=== PATIENT | female | born 1935 | race Caucasian/White ===

== ENCOUNTER 2019-10-19 21:21 | Inpatient (IN) ==
--- OUTSIDE RECORDS SUMMARY | 2019-10-19 21:24 | External Medical Summary | Continuity of Care Document ---
:1935 Author Name Susu Knight Address Unavailable Unavailable , Care Team Providers Name Role Phone Susu Knight Unavailable [email or web address] Unavailable Problems Active medical history not documented Allergies and Adverse Reactions Allergy history not documented Medications Medications not documented Procedures Procedures not documented Immunizations Immunizations not documented Plan of Treatment Planned Observations Planned Goals not documented Results No Known Results Results not documented
[2019-10-19] MEDS ORDERED: ONDANSETRON INJ 2 MG/ML 2 ML VIAL IV STA (21:33)
[2019-10-19] MEDS ORDERED: HYDROmorphone INJ 1 MG/ML SYRINGE IV STA (21:33)
--- NOTE | 2019-10-19 21:38 | Emergency Department Note ---
History of Present Illness General Chief complaint: Abdominal Pain Stated complaint: AB PAIN Time Seen by Provider: 10/19/19 21:27 History of Present Illness Provider complaint: Abdominal pain Current Pain Intensity: 10 Quality: + stabbing and + sharp Associated symptoms: + nausea/vomiting 84-year-old female with history of pancreatic, adrenal, and liver cancer presents emergency department with abdominal pain. She states her abdominal pain is diffuse. She states she thinks it is her cancer pain. No fevers. No dysuria. Patient also reports nausea. No vomiting. Patient is a patient of Dr. Sanchez oncology. Home Medications Home Medications Medication Instructions Recorded Confirmed Type Ocuvite Preservision 1 tab PO QPM #0 tab 09/26/14 10/19/19 History docusate sodium [Stool Softener] 100 mg PO QAM 10/19/19 10/19/19 History fentanyl 25 mcg TOPICAL [id number] 10/19/19 10/19/19 History nitrofurantoin macrocrystal 100 mg PO QPM 10/19/19 10/19/19 History oxycodone 5 - 10 mg PO Q4H PRN 10/19/19 10/19/19 History polyethylene glycol 3350 [Miralax] 17 g PO DAILY PRN 10/19/19 10/19/19 History simvastatin 20 mg PO QPM 10/19/19 10/19/19 History warfarin 5 mg PO 6XWK 10/19/19 10/19/19 History warfarin 7.5 mg PO WK 10/19/19 10/19/19 History Allergies Allergy/AdvReac Type Severity Reaction Status Date / Time Sulfa (Sulfonamide Allergy Unknown hands swell Verified 10/19/19 22:14 Antibiotics) meperidine AdvReac Severe blood Verified 10/19/19 22:14 pressure drops significantly Past Med/Surg History Medical History (Updated 10/19/19 @ 23:51 by Jude Caballero) A-fib Family history of ovarian cancer GERD (gastroesophageal reflux disease) HLD (hyperlipidemia) Pancreatic cancer Pancreatic cancer metastasized to liver Surgical History (Updated 10/19/19 @ 22:04 by Jude Caballero) H/O resection of pancreas Family History (Updated 10/19/19 @ 22:05 by Jude Caballero) Other Cancer Social History Preferred Language: French Feels Safe at Home: Yes Smoking Status: Former smoker Review of Systems A total of 10 systems reviewed and were otherwise negative Physical Exam Vital Signs Vital Signs - 24 hr 10/19/19 21:30 10/19/19 21:32 10/19/19 21:38 Temperature 37.1 C Temperature Source Oral Pulse Rate 97 H 98 H 94 H Pulse Rate from SpO2 Sensor 96 H 99 H Respiratory Rate 22 22 20 Respiratory Effort / Characteristics Non-Labored Spontaneous Respiratory Depth Normal Respiratory Pattern Regular Blood Pressure 206/117 H 206/117 H Blood Pressure Mean 130 146 Pulse Oximetry 96 97 95 Oxygen Delivery Method Room Air Sepsis Recent Fever Within 48 Hours No Sepsis New/Unexplained Change in Mental Status No Sepsis Action Taken by Nursing No Action Required 10/19/19 22:00 10/19/19 22:38 10/19/19 23:00 Temperature Temperature Source Pulse Rate 100 H 104 H 83 Pulse Rate from SpO2 Sensor 100 H 82 Respiratory Rate 25 H 15 Respiratory Effort / Characteristics Respiratory Depth Respiratory Pattern Blood Pressure 182/91 H Blood Pressure Mean 124 Pulse Oximetry 90 Oxygen Delivery Method Sepsis Recent Fever Within 48 Hours Sepsis New/Unexplained Change in Mental Status Sepsis Action Taken by Nursing 10/19/19 23:01 Temperature Temperature Source Pulse Rate 82 Pulse Rate from SpO2 Sensor 82 Respiratory Rate 16 Respiratory Effort / Characteristics Respiratory Depth Respiratory Pattern Blood Pressure Blood Pressure Mean Pulse Oximetry Oxygen Delivery Method Sepsis Recent Fever Within 48 Hours Sepsis New/Unexplained Change in Mental Status Sepsis Action Taken by Nursing Physical Exam GENERAL: She is oriented to person, place, and time. She appears well-developed and well-nourished. She does not appear distressed. HENT: Exam performed. -Head: Normocephalic and atraumatic. -Right Ear: External ear normal. No mastoid tenderness. -Left Ear: External ear normal. No mastoid tenderness. -Mouth/Throat: The oropharynx is clear and moist. No trismus in the jaw. No dental abscesses or uvula swelling. No oropharyngeal exudate or tonsillar abscesses. EYES: Conjunctivae and EOM are normal. Pupils are equal, round, and reactive to light. Right eye exhibits no discharge. Left eye exhibits no discharge. No scleral icterus. NECK: Normal range of motion. Neck supple. No JVD present. No spinous process tenderness present. No carotid bruit present. No rigidity. No tracheal deviation and normal range of motion present. No Brudzinski's sign and no Kernig's sign noted. CV: Normal rate, regular rhythm, normal heart sounds and intact distal pulses. There is no peripheral edema. Palpable radial pulses bue. PULM/CHEST: Effort normal and breath sounds normal. No respiratory distress. No stridor. She has no wheezes. She has no rales. -Chest Wall: She exhibits no tenderness. ABD: Diffuse pain on palpation of the abdomen. MUSC/SKEL: Normal range of motion. There is no peripheral edema, tenderness or deformity. LYMPH: No cervical adenopathy. NEURO: She is alert and oriented to person, place, and time. She has normal strength. No cranial nerve deficit or sensory deficit. Coordination and gait normal. GCS eye subscore is 4. GCS verbal subscore is 5. GCS motor subscore is 6. Cerebellar tests wnl. SKIN: Skin is warm and dry. She is not diaphoretic. PSYCH: She has a normal mood and affect. Behavior is normal. Judgment and thought content normal. Course Course 2137: The patient was evaluated in room B7. A complete history and physical exam was performed. 2201: Salma cask maker was able to access the [employer] EMR system. Patient is a DNR/DNI advanced directive. Per Dr. Sanchez oncology's last note patient is on sandostatin. She has history of A. fib, GERD, fibromyalgia, hyperlipidemia. 2314: Vital signs stable. CT does show large necrotic mass with plethora of metastatic disease. This is known to the patient. Again she is a DNR/DNI. Vincent sharma on reassessment is still having significant pain. Patient will be admitted for pain control. Dr. Anthony Tabares hospitalist notified and agreed to the admission. Administered Medications Sodium Chloride (Nss) 500 mls @ 125 mls/hr IV .Q4H KAZ Stop: 11/18/19 21:44 Last Admin: 10/19/19 21:55 Dose: 125 mls/hr Documented by: [id number] Ioversol (Optiray 320 100ml) 94 ml IV ONCE PRN PRN Reason: Interaction Checking Stop: 10/23/19 22:18 Last Admin: 10/19/19 22:19 Dose: 94 ml Documented by: [id number] Discontinued Medications Hydromorphone HCl (Dilaudid) 0.5 mg IV NOW STA Stop: 10/19/19 21:34 Last Admin: 10/19/19 21:54 Dose: 0.5 mg Documented by: [id number] Hydromorphone HCl (Dilaudid) 0.5 mg IV NOW STA Stop: 10/19/19 22:41 Last Admin: 10/19/19 22:52 Dose: 0.5 mg Documented by: [id number] Hydromorphone HCl (Dilaudid) 0.5 mg IV NOW STA Stop: 10/19/19 23:13 Last Admin: 10/19/19 23:29 Dose: 0.5 mg Documented by: [id number] Ondansetron HCl (Zofran) 4 mg IV NOW STA Stop: 10/19/19 21:34 Last Admin: 10/19/19 21:53 Dose: 4 mg Documented by: [id number] Medical Decision Making Laboratory Data Result diagrams: 10/19/19 21:45 10/19/19 21:45 Lab Results 10/19/19 10/19/19 10/19/19 Range/Units 21:45 21:45 21:45 WBC 13.07 H (4.8-10.8) K/uL RBC 4.59 (4.2-5.4) M/uL Hgb 12.4 (12.0-16.0) g/dL POC Hgb (12.0-16.0) g/dl Hct 39.1 (37-47) % POC Hct (37-47) % MCV 85.2 (80-100) fL MCH 27.0 (25-34) pg MCHC 31.7 L (32-36) g/dL RDW Std Deviation 51.0 H (36.4-46.3) fL RDW Coeff of Lottie 16.2 H (11.5-14.5) % Plt Count 380 (130-400) K/uL MPV 12.0 H (7.4-10.4) fL Immature Gran % (Auto) 0.3 % Neut % (Auto) 78.6 % Lymph % (Auto) 13.5 % Ashley % (Auto) 7.3 % Eos % (Auto) 0.0 % Baso % (Auto) 0.3 % Immature Gran # (Auto) 0.04 H (0.00-0.02) K/uL Neut # (Auto) 10.28 H (1.4-6.5) K/uL Lymph # (Auto) 1.76 (1.2-3.4) K/uL Ashley # (Auto) 0.95 H (0.11-0.59) K/uL Eos # (Auto) 0.00 (0-0.5) K/uL Baso # (Auto) 0.04 (0-0.2) K/uL PT (9.0-12.0) Seconds INR (0.9-1.1) APTT (21.0-31.0) Seconds PTT Ratio POC Sodium (135-144) mmol/L Sodium 132 L (136-145) mmol/L POC Potassium (3.3-5.0) mmol/L Potassium (3.5-5.1) mmol/L POC Chloride (101-112) mmol/L Chloride 97 L (98-107) mmol/L Carbon Dioxide 26 (21-32) mmol/L POC Total CO2 (24-31) mEq/l Anion Gap 9.0 (3-11) POC Anion Gap (16-25) mmol/L POC BUN (7-18) mg/dl BUN 12 (7-18) mg/dl Creatinine 0.74 (0.6-1.2) mg/dl POC Creatinine (0.6-1.3) mg/dl Est Cr Clr Drug Dosing 43.9 ml/min Est GFR ( Amer) 85.6 Est GFR (Non-Af Amer) 73.9 BUN/Creatinine Ratio 16.0 (10-20) Glucose 162 H (70-99) mg/dl POC Glucose (other) (70-99) mg/dl Calcium 9.5 (8.5-10.1) mg/dl POC Ioniz Calcium Juliet (1.12-1.32) mmol/l Magnesium (1.8-2.4) mg/dl Total Bilirubin 0.3 (0.2-1) mg/dl Direct Bilirubin (0-0.2) mg/dl AST (15-37) U/L ALT 13 (12-78) U/L Alkaline Phosphatase 97 (45-117) U/L Ammonia < 10.0 L (11-32) umol/L Troponin I < 0.015 (0-0.045) ng/ml Total Protein 8.0 (6.4-8.2) gm/dl Albumin 3.4 (3.4-5.0) gm/dl Lipase 57 L (73-393) U/L Urine Color Urine Appearance (Clear) Urine pH (4.5-7.5) Ur Specific [place] (1.000-1.030) Urine Protein (Negative) Urine Glucose (UA) (Negative) Urine Ketones (Negative) Urine Blood (Negative) Urine Nitrite (Negative) Urine Bilirubin (Negative) Urine Urobilinogen (Negative) Ur Leukocyte Esterase (Negative) Urine WBC (Auto) (0-5) /hpf Urine RBC (Auto) (0-4) /hpf U Hyaline Cast (Auto) (0-5) /lpf U Epithel Cells (Auto) (0-5) /lpf Urine Bacteria (Auto) (Negative) 10/19/19 10/19/19 10/19/19 Range/Units 21:45 21:51 22:36 WBC (4.8-10.8) K/uL RBC (4.2-5.4) M/uL Hgb (12.0-16.0) g/dL POC Hgb 13.9 (12.0-16.0) g/dl Hct (37-47) % POC Hct 41 (37-47) % MCV (80-100) fL MCH (25-34) pg MCHC (32-36) g/dL RDW Std Deviation (36.4-46.3) fL RDW Coeff of Lottie (11.5-14.5) % Plt Count (130-400) K/uL MPV (7.4-10.4) fL Immature Gran % (Auto) % Neut % (Auto) % Lymph % (Auto) % Ashley % (Auto) % Eos % (Auto) % Baso % (Auto) % Immature Gran # (Auto) (0.00-0.02) K/uL Neut # (Auto) (1.4-6.5) K/uL Lymph # (Auto) (1.2-3.4) K/uL Ashley # (Auto) (0.11-0.59) K/uL Eos # (Auto) (0-0.5) K/uL Baso # (Auto) (0-0.2) K/uL PT 39.1 H (9.0-12.0) Seconds INR 4.0 H (0.9-1.1) APTT 37.3 H (21.0-31.0) Seconds PTT Ratio 1.3 POC Sodium 131 L (135-144) mmol/L Sodium (136-145) mmol/L POC Potassium 4.5 (3.3-5.0) mmol/L Potassium (3.5-5.1) mmol/L POC Chloride 95 L (101-112) mmol/L Chloride (98-107) mmol/L Carbon Dioxide (21-32) mmol/L POC Total CO2 29 (24-31) mEq/l Anion Gap (3-11) POC Anion Gap 13.0 L (16-25) mmol/L POC BUN 13 (7-18) mg/dl BUN (7-18) mg/dl Creatinine (0.6-1.2) mg/dl POC Creatinine 0.7 (0.6-1.3) mg/dl Est Cr Clr Drug Dosing ml/min Est GFR ( Amer) Est GFR (Non-Af Amer) BUN/Creatinine Ratio (10-20) Glucose (70-99) mg/dl POC Glucose (other) 167 H (70-99) mg/dl Calcium (8.5-10.1) mg/dl POC Ioniz Calcium Juliet 1.14 (1.12-1.32) mmol/l Magnesium (1.8-2.4) mg/dl Total Bilirubin (0.2-1) mg/dl Direct Bilirubin (0-0.2) mg/dl AST (15-37) U/L ALT (12-78) U/L Alkaline Phosphatase (45-117) U/L Ammonia (11-32) umol/L Troponin I (0-0.045) ng/ml Total Protein (6.4-8.2) gm/dl Albumin (3.4-5.0) gm/dl Lipase (73-393) U/L Urine Color Yellow Urine Appearance Turbid A (Clear) Urine pH 8.0 H (4.5-7.5) Ur Specific [place] 1.027 (1.000-1.030) Urine Protein 1+ H (Negative) Urine Glucose (UA) Negative (Negative) Urine Ketones 1+ H (Negative) Urine Blood Trace H (Negative) Urine Nitrite Negative (Negative) Urine Bilirubin Negative (Negative) Urine Urobilinogen Negative (Negative) Ur Leukocyte Esterase Negative (Negative) Urine WBC (Auto) 5-10 H (0-5) /hpf Urine RBC (Auto) 5-10 H (0-4) /hpf U Hyaline Cast (Auto) 1-5 (0-5) /lpf U Epithel Cells (Auto) 20-30 H (0-5) /lpf Urine Bacteria (Auto) Negative (Negative) Imaging Data Radiologist's Impression: ABDOMEN AND PELVIS CT WITH IV CONTRAST CT DOSE: 261.25 mGy.cm HISTORY: Generalized abdominal pain. Pancreatic cancer. TECHNIQUE: Multiaxial CT images of the abdomen and pelvis were performed following the use of intravenous contrast. A dose lowering technique was utilized adhering to the principles of ALARA. COMPARISON STUDY: None. FINDINGS: Left basilar linear densities consistent with subsegmental atelectasis or scarring. No pneumoperitoneum. No pneumatosis. No suspicious lytic or blastic osseous lesions. The gallbladder, right adrenal gland, and right kidney are unremarkable. The spleen is not identified and likely surgically absent. There are few irregular hypodense lesions within the liver with the 3 largest measuring 3.4 cm within the right hepatic lobe, 2.4 cm within the left hepatic lobe, and also 2.2 cm within the left hepatic lobe. These are suspicious for metastatic disease. Additional subcentimeter hypodense lesions within the liver are too small to characterize. Partially necrotic large left upper quadrant mass with a few adjacent satellite nodules. This measures approximately 10 x 6 cm. This abuts and likely invades along the undersurface of the proximal stomach. This appears to invade into the left adrenal gland and partially encases the celiac artery. There is a patent stent within the celiac artery. This mass also results in mild mass effect along the left kidney. No hydronephrosis. Multiple partially necrotic nodules seen within the left upper quadrant laterally at the splenic resection site and along the left paracolic gutter abutting the a scending colon. Some of these could represent areas of splenosis. However, the necrotic nodules remain suspicious for metastatic disease. The uterus is surgically absent. No bladder wall thickening. Small midline ventral hernia within the lower pelvis which contains a small segment of the anterior bladder. Multiple small soft tissue nodules along the right perirectal location with the largest measuring 1 cm. No evidence for bowel obstruction. Colonic diverticulosis. No evidence for diverticulitis. Moderate to large amount of stool within the proximal colon. Soft tissue densities within the subcutaneous fat of the left gluteal region are nonspecific but may represent sites of prior medication injection. Multiple small fat-containing midline ventral hernias. There is also a moderate size umbilical hernia containing a short segment of small bowel. IMPRESSION: 1. Large necrotic mass within the left upper quadrant has described above. 2. Multiple soft tissue nodules in the left side of the abdomen and right perirectal location. This may represent a combination of splenosis and metastati c disease. 3. No bowel wall thickening or obstruction. 4. Hypodense lesions within the liver concerning for metastatic disease. 5. Multiple ventral hernias some of which contain small bowel and a short segment of the anterior bladder. 6. Additional findings as described above. ACT 112: Negative or not required by law. Electronically signed by: Zafar Campbell M.D. 10/19/2019 11:09 PM Dictated: 10/19/192248 Transcribed: 10/19/192248 ECG Data Rate (beats per minute): 97 Rhythm: + normal sinus ECG Intervals/blocks: + Normal QRS, + Normal ND and + Normal QT-c ECG ST segments: + Normal ST segments MDM Narrative 2138: The patient was evaluated in room B7. A complete history and physical exam was performed. 2201: Salma clayworker was able to access the [employer] EMR system. Patient is a DNR/DNI advanced directive. Per Dr. Sanchez oncology's last note patient is on sandostatin. She has history of A. fib, GERD, fibromyalgia, hyperlipidemia. 2315: Vital signs stable. CT does show large necrotic mass with plethora of metastatic disease. This is known to the patient. Again she is a DNR/DNI. Patient on reassessment is still having significant pain. Patient will be admitted for pain control. Dr. Anthony Tabares hospitalist notified and agreed to the admission. Impression & Plan Intractable abdominal pain Discharge Plan Visit Data Chief Complaint: Abdominal Pain Stated Complaint: AB PAIN ED Provider: Jude Caballero Discharge Problem: Intractable abdominal pain Patient Disposition: Admitted As Inpatient Forms Stand Alone Forms: [facility] Hammer and Grind Prescriptions Prescriptions: No Action Ocuvite Preservision 1 TAB tablet 1 tab PO QPM Qty: 0 RF: 0 nitrofurantoin macrocrystal 50 mg capsule 100 mg PO QPM RF: 0 simvastatin 20 mg tablet 20 mg PO QPM RF: 0 warfarin 5 mg tablet 5 mg PO [id number] RF: 0 warfarin 5 mg tablet 7.5 mg PO WK RF: 0 docusate sodium [Stool Softener] 100 mg Capsule 100 mg PO QAM RF: 0 fentanyl 25 mcg/hr patch 72 hour 25 mcg topical [id number] RF: 0 polyethylene glycol 3350 [Miralax] 17 gram/dose Powder 17 g PO DAILY PRN (Reason: Constipation) RF: 0 oxycodone 5 mg tablet 5 - 10 mg PO Q4H PRN (Reason: Pain) RF: 0 Referrals Referrals: Raleigh Pérez DO [Primary Care Provider] -
[2019-10-19] MEDS ORDERED: SODIUM CHLORIDE 0.9% 500 ML IV SCH (21:45)
[2019-10-19 21:56] LABS: Basophils # (auto) 0.04 K/uL (0-0.2); Basophils % (auto) 0.3 %; Hematocrit (blood only) 39.1 % (37-47); Hemoglobin 12.4 g/dL (12.0-16.0); Immature Granulocytes # (auto) 0.04 K/uL (0.00-0.02); Immature Granulocytes % (auto) 0.3 %; Lymphocytes # (auto) 1.76 K/uL (1.2-3.4); Lymphocytes % (auto) 13.5 %; Mean Corpuscular Hgb Conc 31.7 g/dL (32-36); Mean Corpuscular Volume 85.2 fL (80-100); Monocytes # (auto) 0.95 K/uL (0.11-0.59); Monocytes % (auto) 7.3 %; Neutrophils # (auto) 10.28 K/uL (1.4-6.5); Neutrophils % (auto) 78.6 %; Platelet Count 380 K/uL (130-400); RDW Coefficient of Variation 16.2 % (11.5-14.5); Red Blood Count 4.59 M/uL (4.2-5.4); White Blood Count 13.07 K/uL (4.8-10.8)
[2019-10-19 22:04] LABS: iSTAT Creatinine 0.7 mg/dl (0.6-1.3); iSTAT Hemoglobin 13.9 g/dl (12.0-16.0); iSTAT Ionized Calcium 1.14 mmol/l (1.12-1.32); iSTAT Potassium 4.5 mmol/L (3.3-5.0)
[2019-10-19 22:15] LABS: Partial Thromboplastin Ratio 1.3; Partial Thromboplastin Time 37.3 Seconds (21.0-31.0); Prothrombin Time 39.1 Seconds (9.0-12.0)
[2019-10-19] MEDS ORDERED: IOVERSOL 100ml IV PRN (22:19)
[2019-10-19 22:26] LABS: Alanine Aminotransferase 13 U/L (12-78); Albumin Level 3.4 gm/dl (3.4-5.0); Alkaline Phosphatase 97 U/L (45-117); Blood Urea Nitrogen 12 mg/dl (7-18); Calcium 9.5 mg/dl (8.5-10.1); Carbon Dioxide 26 mmol/L (21-32); Chloride 97 mmol/L (98-107); Creatinine Clr Calc Pharmacy 43.9 ml/min; Est GFR (African American) 85.6; Est GFR (Non-African American) 73.9; Glucose 162 mg/dl (70-99); Lipase 57 U/L (73-393); Sodium 132 mmol/L (136-145)
[2019-10-19 22:32] LABS: Bilirubin,Total 0.3 mg/dl (0.2-1); Troponin I < 0.015 ng/ml (0-0.045)
[2019-10-19] MEDS ORDERED: HYDROmorphone INJ 0.5 MG/0.5 ML SYR IV STA ×2 (22:40→23:12)
[2019-10-19 22:50] LABS: Appearance Urine Turbid (Clear); Bacteria Urine Automated Negative (Negative); Bilirubin Urine Negative (Negative); Blood Urine Trace (Negative); Color Urine Yellow; Epithelial Cell Urine Auto 20-30 /lpf (0-5); Glucose Urine UA Negative (Negative); Ketones Urine 1+ (Negative); Leukocyte Esterase Urine Negative (Negative); Nitrite Urine Negative (Negative); Specific Gravity Urine 1.027 (1.000-1.030); Urobilinogen Urine Negative (Negative)
[2019-10-19 22:53] LABS: Protein Urine 1+ (Negative)
[2019-10-19 22:54] LABS: Sulfosalicylic Acid Urine Positive (Negative)
--- NOTE | 2019-10-19 23:11 | CT Scan Report ---
ABDOMEN AND PELVIS CT WITH IV CONTRAST CT DOSE: 261.25 mGy.cm HISTORY: Generalized abdominal pain. Pancreatic cancer. TECHNIQUE: Multiaxial CT images of the abdomen and pelvis were performed following the use of intrave nous contrast. A dose lowering technique was utilized adhering to the principles of ALARA. COMPARISON STUDY: None. FINDINGS: Left basilar linear densities consistent with subsegmental atelectasis or scarring. No pneu moperitoneum. No pneumatosis. No suspicious lytic or blastic osseous lesions. The gallbladder, right adrenal gland, and right kidney are unremarkable. The spleen is not identified and likely surgically absent. There are few irregular hypodense lesions within the liver with the 3 largest measuring 3.4 c m within the right hepatic lobe, 2.4 cm within the left hepatic lobe, and also 2.2 cm within the left hepatic lobe. These are suspicious for metastatic disease. Additional subcentimeter hypodense lesion s within the liver are too small to characterize. Partially necrotic large left upper quadrant mass w ith a few adjacent satellite nodules. This measures approximately 10 x 6 cm. This abuts and likely in vades along the undersurface of the proximal stomach. This appears to invade into the left adrenal gl and and partially encases the celiac artery. There is a patent stent within the celiac artery. This m ass also results in mild mass effect along the left kidney. No hydronephrosis. Multiple partially nec rotic nodules seen within the left upper quadrant laterally at the splenic resection site and along t he left paracolic gutter abutting the ascending colon. Some of these could represent areas of splenos is. However, the necrotic nodules remain suspicious for metastatic disease. The uterus is surgically absent. No bladder wall thickening. Small midline ventral hernia within the lower pelvis which contai ns a small segment of the anterior bladder. Multiple small soft tissue nodules along the right perire ctal location with the largest measuring 1 cm. No evidence for bowel obstruction. Colonic diverticulo sis. No evidence for diverticulitis. Moderate to large amount of stool within the proximal colon. Sof t tissue densities within the subcutaneous fat of the left gluteal region are nonspecific but may rep resent sites of prior medication injection. Multiple small fat-containing midline ventral hernias. Th ere is also a moderate size umbilical hernia containing a short segment of small bowel. IMPRESSION: 1. Large necrotic mass within the left upper quadrant has described above. 2. Multiple soft tissue nodules in the left side of the abdomen and right perirectal location. This m ay represent a combination of splenosis and metastatic disease. 3. No bowel wall thickening or obstruction. 4. Hypodense lesions within the liver concerning for metastatic disease. 5. Multiple ventral hernias some of which contain small bowel and a short segment of the anterior hung dder. 6. Additional findings as described above. ACT 112: Negative or not required by law. Electronically signed by: Zafar Campbell M.D. 10/19/2019 11:09 PM
[2019-10-20] MEDS ORDERED: POLYETHYLENE (MIRALAX) 17 GM PACK PO PRN (01:25)
[2019-10-20] MEDS ORDERED: ONDANSETRON INJ 2 MG/ML 2 ML VIAL IV PRN (01:25)
[2019-10-20] MEDS: HYDROmorphone INJ 0.5 MG/0.5 ML SYR IV PRN ×6 (01:37→20:55)
[2019-10-20] MEDS: SODIUM CHLORIDE 0.9% 1000ML 1,000 ML IV SCH ×2 (01:42→20:51)
[2019-10-20] MEDS: CHECK FENTANYL PATCH PLACEMENT SCH ×4 (01:43→23:28)
[2019-10-20] MEDS ORDERED: CARBOHYDRATES FOR HYPOGLYCEMIA PO PRN (01:45)
[2019-10-20] MEDS ORDERED: GLUCOSE 40% GEL 15 GM TUBE PO PRN (01:45)
[2019-10-20] MEDS ORDERED: DEXTROSE 50% 50 ML SYRINGE IV PRN (01:45)
[2019-10-20] MEDS ORDERED: GLUCOSE 10 TABS/TUBE PO PRN (01:45)
[2019-10-20] MEDS ORDERED: GLUCAGON FOR INJ 1 MG VIAL SQ PRN (01:45)
[2019-10-20] MEDS ORDERED: HYDROmorphone INJ 0.5 MG/0.5 ML SYR IV STA ×2 (02:13→03:44)
--- NOTE | 2019-10-20 03:10 | History and Physical Report ---
DATE OF ADMISSION: 10/20/2019 CHIEF COMPLAINT: Severe abdominal pain. 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 She currently comes with severe abdominal pain. The patient follows with hematology/oncology for neuroendocrine pancreatic tumor which is metastatic. Currently, she is only on Sandostatin LAR every 4 weekly.Since last 2 days, she has severe abdominal pain, is not getting better, mostly in the left lower abdominal pain associated with nausea, so that is why she came to the ER and CAT scan showing large necrotic mass in the left upper quadrant. The patient is DNR/DNI. She says she has constipation, uses stool softener. Denies blood in the stool or black stools, normal bladder movements. No fever, no chills, no chest pain, no shortness of breath, no cough, no difficulty swallowing. Appetite is not that great. No blurred vision. No headaches. Hard of hearing. No earache, no sore throat, no fever, no chills. Ambulates okay at home. When she goes outside, she ambulates with a walker.Hemodynamically stable. ALLERGIES: SULFA ANTIBIOTICS,MEPERIDINE. PAST MEDICAL HISTORY: As mentioned above. PAST SURGICAL HISTORY: Colonoscopy, EGDs, EGD with endoscopic ultrasound, laparoscopic esophagogastric fundoplasty, left and right knee prosthesis, paraesophageal hernia repair, distal pancreatectomy, laparoscopic pyeloplasty, laparotomy for ovarian cyst, thoracocentesis, total abdominal hysterectomy with removal of tubes. MEDICATIONS: The patient is on nitrofurantoin 100 mg p.o. daily, Colace 100 mg p.o. b.i.d., lactulose p.r.n., Zofran 4 mg p.o. q. 6 hours p.r.n., Senokot 8.6 mg at bedtime, Zocor 20 mg p.o. daily, Coumadin 7.5 mg on Fridays and 5 mg all other days or as directed by Coumadin clinic, fentanyl patch 25 mcg p.o. q. 72 hours, oxycodone 5 mg 1-2 tablets every 4 hours p.r.n., multivitamins 1 tablet daily, MiraLax 17 g p.o. daily p.r.n., Tylenol 1000 mg p.o. q. 8 hours p.r.n. FAMILY HISTORY: Significant for father had heart disorder, [place]. Mother had ovarian cancer. Maternal grandmother had breast cancer. Daughter has breast cancer. SOCIAL HISTORY: Currently lives alone in senior apartment. Former smoker, quit in 1971. Smoked 1 pack a day for 20 years. No alcohol use, no drug use. REVIEW OF SYMPTOMS: As per HPI. Rest of review of symptoms are negative. PHYSICAL EXAMINATION: GENERAL: The patient is old and frail, not in acute distress. VITAL SIGNS: Temperature 37.1, pulse 82, respiratory rate 16, blood pressure 182/91, oxygen 98% on room air. HEENT: Pupils equal, round, reactive to light. NECK: Supple. CARDIOVASCULAR: S1, S2 heard, regular rate and rhythm, no murmur, no gallop. RESPIRATORY SYSTEM: Normal AP diameter. No accessory muscle use. No wheezing, no crackles. ABDOMEN: Soft, bowel sounds somewhat sluggish, diffuse abdominal tenderness, more in the left lower quadrant, mild guarding.Ventral hernia seen, No rigidity. No distension. CENTRAL NERVOUS SYSTEM: Cranial nerves II-XII are grossly intact. Nonfocal. EXTREMITIES: No edema, no erythema. LABORATORY DATA: WBC 13, hemoglobin 12.4, hematocrit 39.1, platelets 380. PT 39.1, INR 4, APTT 37.3. Sodium 132, potassium 4.5, chloride 97, bicarbonate 26, BUN 12, creatinine 0.7, serum glucose 162, calcium 9.5, ionized calcium 1.1, magnesium, total bilirubin 0.3, ALT 13, alkaline phosphatase 97. Ammonia less than 10. Troponin I less than 0.015. Lipase 57. Urinalysis, +1 ketones. EKG: Normal sinus rhythm with sinus arrhythmia at a rate of 97, left axis deviation. IMAGING: CT of abdomen and pelvis, large necrotic mass in the left upper quadrant. Multiple soft tissue nodules in the left side of the abdomen and right perirectal location this may represent combination of splenosiis and metastatic disease. No bowel wall thickening or obstruction, hypodense lesions within the liver concerning for metastatic disease, multiple ventral hernias some of which contains and small bowel and short segment of anterior bladder. ASSESSMENT AND PLAN: This is an 84-year-old female with metastatic neuroendocrine pancreatic tumor, presents with abdominal pain and found to have a necrotic mass in the left upper quadrant. 1. Abdominal pain secondary to metastatic neuroendocrine pancreatic tumor, necrotic mass in the left quadrant of abdomen on the ct scan. Pain control. The patient is DNR/DNI. We will continue her home fentanyl patch and oxycodone p.r.n. We will place on IV Dilaudid p.r.n. Consult Palliative Care. Gentle fluids. Monitor on medical floor. 2. Metastatic pancreatic endocrine tumor, mets to the liver, adrenal gland, status post pancreatectomy and splenectomy, and also lung lesions, there is question for starting chemotherapy, but she declined. She is currently on Sandostatin 30 mg LAR 4 weekly Now the tumor is again growing in size as of CAT scan today. The patient wants to be comfortable .DNR/DNI Will consult palliative care. If any questions or concerns, we will consult heme/onc. 3. History of atrial fibrillation, history of DVT, PE, not on any rate-controlling medications, currently rate under control her. INR is 4, hold the Coumadin. Follow the PT/INR. 4. Hyperlipidemia: On statin. 5. Constipation, stool softeners. 6. Diabetes, not on any medications. Placed on insulin sliding scale. Follow the blood sugars. 9. Deep venous thrombosis prophylaxis on Coumadin. INR supratherapeutic. 10. Disposition: Admit to medical floor. Social service to consult for discharge planning. [facility]
[2019-10-20] MEDS ORDERED: HydrALAZINE HCL 20 MG/ML VIAL IV PRN (04:13)
[2019-10-20 06:54] LABS: INR 3.9 (0.9-1.1)
[2019-10-20] MEDS: DOCUSATE SODIUM 100 MG CAP PO SCH (08:59)
--- NOTE | 2019-10-20 09:36 | Electrocardiogram Report ---
Test Reason : Blood Pressure : / mmHG Vent. Rate : 097 BPM Atrial Rate : 097 BPM P-R Int : 150 ms QRS Dur : 084 ms QT Int : 374 ms P-R-T Axes : 065 -35 030 degrees QTc Int : 474 ms Poor data quality, interpretation may be adversely affected Normal sinus rhythm with occasional Premature atrial complexes Left axis deviation Abnormal ECG When compared with ECG of 26-SEP-2014 21:33, Premature ventricular complexes are no longer Present Premature atrial complexes now present Confirmed by Kevin Corral ([id number]) on 10/20/2019 9:36:07 AM Referred By: REFERRED SELF Confirmed By:Kevin Corral
[2019-10-20] MEDS ORDERED: bisacodyL 10 MG SUPP PR STA (09:51)
[2019-10-20] MEDS: INSULIN ASPART 100 UNITS/ML 3 ML PEN SC SCH ×4 (09:57→20:46)
[2019-10-20] MEDS: POLYETHYLENE (MIRALAX) 17 GM PACK PO SCH ×2 (10:52→20:59)
[2019-10-20] MEDS: SENNA 8.6 MG TAB PO SCH (10:52)
--- NOTE | 2019-10-20 12:01 | Hospitalist Progress Note ---
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 She currently comes with severe abdominal pain. The patient follows with hematology/oncology for neuroendocrine pancreatic tumor which is metastatic. Currently, she is only on Sandostatin LAR every 4 weekly.Since last 2 days, she has severe abdominal pain, is not getting better, mostly in the left lower abdominal pain associated with nausea, so that is why she came to the ER and CAT scan showing large necrotic mass in the left upper quadrant." -admission CT abdomen Impressions "1. Large necrotic mass within the left upper quadrant has described above. 2. Multiple soft tissue nodules in the left side of the abdomen and right perirectal location. This may represent a combination of splenosis and metastatic disease. 3. No bowel wall thickening or obstruction. 4. Hypodense lesions within the liver concerning for metastatic disease. 5. Multiple ventral hernias some of which contain small bowel and a short segment of the anterior bladder" -patient given IV fluids, pain medications, give bowel regimen for constipation. admitting physician requested palliative care consult Metastatic pancreatic endocrine tumor -as per history and physical and imaging scans, there are metastasis to the liver, adrenal gland, status post pancreatectomy and splenectomy, and also lung lesions, -as outpatient, patient on Sandostatin 30 mg LAR 4 weekly and reportedly declined chemotherapy, follows as outpatient with [facility] Hematology/Oncology -admitting physician requested palliative care consult -have called patient's hematology/oncology Dr. Sanchez to update that patient's focus is to be comfortable and seek hospice care Constipation -bowel regimen Diabetes Mellitus Type 2 without group home current use of insulin -on sliding scale insulin while inpatient Hyperlipidemia -On statin. History of atrial fibrillation History of Deep Vein Thrombosis and history Pulmonary Embolism on coumadin anticoagulation, Supratherapeutic INR present on admission -heart rates are controlled -have been on coumadin at home, elevated INR on admission as 4, can trend the INR Deep venous thrombosis prophylaxis is from supratherapeutic INR from home couma din use Code Status as DNR/DNI prior upcoming outpatient appointments primary care doctor 11/03/2019 1:20 PM Provider Raleigh Smith DO Department [facility] oncology/hematology 11/17/2019 10:45 AM Provider Earnest Sanchez MD Department Hematology/Oncology [facility] Admission and Anticipated Discharge Date Admission Date: October 20, 2019 Subjective Patient seen and examined. She has been receiving pain medication. She is comfortably enough to speak and cooperative with physical exam. She is breathing on room air. No respiratory distress. pain is of the belly and to the back. patient reports constipation and allows for bowel regimen medications and suppository Review of Systems Review of Systems: All systems reviewed & are unremarkable except as noted in Subjective Physical Exam Constitutional: cooperative Eyes: PERRL, conjunctivae normal, anicteric sclerae EOM intact bilaterally ENMT: external ear and nose normal, oropharynx normal Neck: normal visual inspection Respiratory: normal respiratory effort Cardiovascular: Rate/Rhythm: regular rate Gastrointestinal (Abdomen): Percussion/Palpation: abdomen soft (has hernia) Musculoskeletal: Head/Neck/Chest: normocephalic and head atraumatic Neurologic: PERRL, EOMI, accommodation nl, no face palsy, no dysarthria moves all extremities Psychiatric: Orientation: alert and oriented x 3 Results & Data Results & Data ([facility]) Vital Signs (Past 12 Hours) Vital Signs Temp Pulse Pulse Pulse Resp BP BP 10/20/19 11:40 37.0 C 102 H 18 10/20/19 07:20 36.9 C 93 H 18 10/20/19 03:31 37.1 C 95 H 17 10/20/19 01:43 36.6 C 98 H 21 173/98 H 10/20/19 01:01 91 H 20 10/20/19 01:00 99 H 22 205/115 H 10/20/19 00:31 79 10/20/19 00:30 79 22 170/103 H BP Pulse Ox 10/20/19 11:40 174/88 H 92 10/20/19 07:20 156/69 H 94 10/20/19 03:31 162/82 H 92 10/20/19 01:43 95 10/20/19 01:01 93 10/20/19 01:00 92 10/20/19 00:31 92 10/20/19 00:30 92
--- NOTE | 2019-10-20 12:39 | Palliative Care Consultation ---
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 Patient follows with [facility]/onc-- is currently on Sandostatin for the pancreatic cancer. Presently, CT abd/pelvis shows large necrotic mass within the left upper quadrant, multiple soft tissue nodules in the left side of abdomen and right perirectal location, liver mets, multiple ventral hernias. There is no comparison study in [facility]'s system, but per hospitalist documentation, there is progression of patient's metastatic disease. Admitting physician notes that patient has declined chemotherapy in the past and maintains at this time that she just wants to be comfortable. She lives alone in a senior apartment. Palliative care is consulted to discuss goals of care. -Patient seen by palliative MD this afternoon. -Patient has used 8 doses of Dilaudid 0.5mg IV in last 24 hours. Patient is also on 25mcg/hr fentanyl patch. Could safely increase fentanyl patch to 50mcg/hr if her pain is controlled on current dose of IV Dilaudid. Could continue to use Oxycodone IR PRN breakthrough pain as well. Further recommendations to come after patient is evaluated. -Is documented that patient lives alone in an apartment. She also apparently told the admitting provider that she wants to be kept comfortable. Home hospice would be a great option for patient get her the care and symptom management she needs at home. Palliative MD will discuss this with patient today. If patient would like us to call family, we will do so. Update 1400: Palliative MD met with patient-- she wants to be comfortable and to return home with hospice. I spoke with patient's son/POA, Mikhail Stewart, with patient's permission. He is in agreement with the plan. Patient's daughter has some nursing experience was just recently staying with patient for a couple weeks. She may return and stay with patient again depending on patient's preference/needs. Mikhail will call patient and family this evening to discuss. -We are working on patient's pain management. Dr. Delaney has increased patient's fentanyl patch to 50mcg/hr. Hopefully tomorrow we can discontinue IV Dilaudid and continue oral breakthrough medication. -Case management updated and will discuss hospice agencies with patient/family tomorrow. -We will continue to follow as needed. (2) Intractable abdominal pain: (3) Pancreatic cancer metastasized to liver: Supervising Physician Co-Signing Physician Notes Chart reviewed, patient seen and examined. Collaborated with JOSE MARTIN Reagan as well as attending physician Dr. Jalloh. Patient awake, alert and oriented x4. Patient reports she received an IV Dilaudid approximately 1 hour ago, states she is still not comfortable requesting further pain medication. Discussed with patient that based on her prior Dilaudid use increasing her patch from 25 to 50 mcg would be advised-did educate patient about some increased sedation, she replied she did not care, she just wants to be comfortable. Patient also reiterated that she did not want to pursue aggressive treatment and was amenable to returning home with hospice care. PE: Alert and oriented, mild to moderate distress due to left sided abdominal pain. HEENT: EOMI, hearing within normal limits Respirations: Unlabored, clear breath sounds CV: Slightly tachycardic on exam, no edema Abdomen: Ventral hernia-nontender, easily reduced. Left-sided abdominal pain did not increase with palpation Extremities: Full range of motion Neuro: Alert and oriented x4 Agree with above note, assessment and plan as per JOSE MARTIN Reagan. Will continue to follow and assist with pain management as well as goals of care. Patient stated she has advanced directives, did name her son Mikhail as her POA. 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 Patient follows with [facility] blair/onc-- is currently on Sandostatin for the pancreatic cancer. Presently, CT abd/pelvis shows large necrotic mass within the left upper quadrant, multiple soft tissue nodules in the left side of abdomen and right perirectal location, liver mets, multiple ventral hernias. There is no comparison study in [facility]'s system, but per hospitalist documentation, there is progression of patient's metastatic disease. Admitting physician notes that patient has declined chemotherapy in the past and maintains at this time that she just wants to be comfortable. She lives alone in a senior apartment. Palliative care is consulted to discuss goals of care. Thank you kindly for this consult. Palliative care team will follow as needed. Allergies Allergy/AdvReac Type Severity Reaction Status Date / Time Sulfa (Sulfonamide Allergy Unknown hands swell Verified 10/19/19 22:14 Antibiotics) meperidine AdvReac Severe blood Verified 10/19/19 22:14 pressure drops significantly Home Medications Home Medications Medication Instructions Recorded Confirmed Type Ocuvite Preservision 1 tab PO QPM #0 tab 09/26/14 10/19/19 History docusate sodium [Stool Softener] 100 mg PO QAM 10/19/19 10/19/19 History fentanyl 25 mcg TOPICAL [id number] 10/19/19 10/19/19 History nitrofurantoin macrocrystal 100 mg PO QPM 10/19/19 10/19/19 History oxycodone 5 - 10 mg PO Q4H PRN 10/19/19 10/19/19 History polyethylene glycol 3350 [Miralax] 17 g PO DAILY PRN 10/19/19 10/19/19 History simvastatin 20 mg PO QPM 10/19/19 10/19/19 History warfarin 5 mg PO [id number] 10/19/19 10/19/19 History warfarin 7.5 mg PO WK 10/19/19 10/19/19 History Patient History Medical History (Updated 10/20/19 @ 12:[address]) A-fib Family history of ovarian cancer GERD (gastroesophageal reflux disease) HLD (hyperlipidemia) Pancreatic cancer Pancreatic cancer metastasized to liver Surgical History (Updated 10/19/19 @ 22:04 by Jude Caballero) H/O resection of pancreas Family History (Updated 10/19/19 @ 22:05 by Jude Caballero) Other Cancer Social History Preferred Language: [place]an Communication Ability: Effective Rivet Machine Operator Required: No Beliefs That Will Affect Care: None Current Living Situation: Alone Other Information That Helps Us Care for You: No Feels Safe at Home: Yes Safety Concerns: Feels Safe At This Time Smoking Status: Former smoker Tobacco Type: cigarettes ; Do You Dip or Chew Tobacco: No ; Smoking End Date: 1971 ; Second Hand Exposure: No ; Tobacco Cessation Education Requested by Patient: No Hx Alcohol Use: No Hx Substance Use: Yes substance use type: opiates, painkillers and prescription drug Substance Use Type Other:: cancer patient Last Used Substance: Hours (ago) Results & Data Vital Signs (Past 12 Hours) Vital Signs Temp Pulse Pulse Pulse Resp BP BP 10/20/19 11:40 37.0 C 102 H 18 10/20/19 07:20 36.9 C 93 H 18 10/20/19 03:31 37.1 C 95 H 17 10/20/19 01:43 36.6 C 98 H 21 173/98 H 10/20/19 01:01 91 H 20 10/20/19 01:00 99 H 22 205/115 H BP Pulse Ox 10/20/19 11:40 174/88 H 92 10/20/19 07:20 156/69 H 94 10/20/19 03:31 162/82 H 92 10/20/19 01:43 95 10/20/19 01:01 93 10/20/19 01:00 92 Coding Level of Care Code 73876 Inpt Consult Level 3 Diagnoses Goals of care, counseling/discussion Z71.89 Intractable abdominal pain R10.9 Pancreatic cancer metastasized to liver C25.9; C78.7 Time Spent (min) 70 Time Spent Midlevel A total of 70 minutes spent by this JIVE DEVELOPER in reviewing chart, speaking with physicians and IDT regarding goals and plan of care.
[2019-10-20] MEDS ORDERED: LACTULOSE SYRUP 20 GM/30 ML UDC PO ONE (14:15)
[2019-10-20] MEDS ORDERED: fentaNYL 50 MCG/HR TDSY TD SCH (14:30)
[2019-10-20] MEDS: CEROVITE ADV FORMULA TAB PO SCH (20:52)
[2019-10-20] MEDS: nitrofurantoin macrocrystaL 50 MG CAP PO SCH (20:57)
[2019-10-20] MEDS ORDERED: SIMVASTATIN 20 MG TAB PO SCH (21:00)
[2019-10-20] MEDS: OXYCODONE HCL IR 5 MG TAB (IMMEDIATE RELEASE) PO PRN (23:27)
[2019-10-21] MEDS: HYDROmorphone INJ 0.5 MG/0.5 ML SYR IV PRN (01:10)
[2019-10-21 06:15] LABS: Basophils # (auto) 0.02 K/uL (0-0.2); Basophils % (auto) 0.1 %; Hematocrit (blood only) 35.1 % (37-47); Hemoglobin 11.8 g/dL (12.0-16.0); Immature Granulocytes # (auto) 0.03 K/uL (0.00-0.02); Immature Granulocytes % (auto) 0.2 %; Lymphocytes % (auto) 9.7 %; Mean Corpuscular Hemoglobin 28.6 pg (25-34); Mean Corpuscular Hgb Conc 33.6 g/dL (32-36); Mean Corpuscular Volume 85.2 fL (80-100); Mean Platelet Volume 12.1 fL (7.4-10.4); Monocytes # (auto) 1.97 K/uL (0.11-0.59); Monocytes % (auto) 13.6 %; Neutrophils # (auto) 11.07 K/uL (1.4-6.5); Neutrophils % (auto) 76.4 %; Platelet Count 320 K/uL (130-400); RDW Coefficient of Variation 16.3 % (11.5-14.5); RDW Standard Deviation 51.5 fL (36.4-46.3); Red Blood Count 4.12 M/uL (4.2-5.4); White Blood Count 14.49 K/uL (4.8-10.8)
[2019-10-21 06:32] LABS: INR 4.1 (0.9-1.1); Prothrombin Time 40.3 Seconds (9.0-12.0)
[2019-10-21 06:53] LABS: BUN Creatinine Ratio 13.1 (10-20); Calcium 8.9 mg/dl (8.5-10.1); Creatinine Clr Calc Pharmacy 63.6 ml/min; Est GFR (African American) 102.3; Est GFR (Non-African American) 88.3; Potassium 4.1 mmol/L (3.5-5.1)
[2019-10-21] MEDS: OXYCODONE HCL IR 5 MG TAB (IMMEDIATE RELEASE) PO PRN ×4 (08:22→23:48)
[2019-10-21] MEDS: CHECK FENTANYL PATCH PLACEMENT SCH ×3 (08:23→23:50)
[2019-10-21] MEDS: INSULIN ASPART 100 UNITS/ML 3 ML PEN SC SCH ×4 (08:24→20:51)
[2019-10-21] MEDS: SENNA 8.6 MG TAB PO SCH (08:27)
[2019-10-21] MEDS: POLYETHYLENE (MIRALAX) 17 GM PACK PO SCH (08:27)
[2019-10-21] MEDS: DOCUSATE SODIUM 100 MG CAP PO SCH (08:27)
[2019-10-21] MEDS ORDERED: fentaNYL 25 MCG/HR TDSY TD SCH (09:00)
--- NOTE | 2019-10-21 09:04 | Hospitalist Progress Note ---
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 She currently comes with severe abdominal pain. The patient follows with hematology/oncology for neuroendocrine pancreatic tumor which is metastatic. Currently, she is only on Sandostatin LAR every 4 weekly.Since last 2 days, she has severe abdominal pain, is not getting better, mostly in the left lower abdominal pain associated with nausea, so that is why she came to the ER and CAT scan showing large necrotic mass in the left upper quadrant." -admission CT abdomen Impressions "1. Large necrotic mass within the left upper quadrant has described above. 2. Multiple soft tissue nodules in the left side of the abdomen and right perirectal location. This may represent a combination of splenosis and metastatic disease. 3. No bowel wall thickening or obstruction. 4. Hypodense lesions within the liver concerning for metastatic disease. 5. Multiple ventral hernias some of which contain small bowel and a short segment of the anterior bladder" -have called patient's hematology/oncology Dr. Sanchez to update that patient's focus is to be comfortable and seek hospice care -patient given IV fluids, given bowel regimen for constipation (made bowel movement on 10/20/2019), on pain medications with recent adjustment of Fentanyl patch by palliative care on 10/20/2019 -have discussed with case management on seeking hospice care services for patient after the hospital when pain medications are optimized in the hospital - patient's pain control is getting better as of 10/21/2019 Constipation -resolving, continue a bowel regimen Diabetes Mellitus Type 2 without residential current use of insulin -on sliding scale insulin while inpatient Hyperlipidemia -On statin. History of atrial fibrillation History of Deep Vein Thrombosis and history Pulmonary Embolism on coumadin anticoagulation, Supratherapeutic INR present on admission -heart rates are controlled -have been on coumadin at home, elevated INR on admission as 4 -INR is 4.1 on 10/21/2019 -at this point in time, as focus is on palliative care, the question of whether or not to continue coumadin depends on patient's preference when INR is no longer supratherapeutic Deep venous thrombosis prophylaxis is from supratherapeutic INR from home coumadin use Code Status as DNR/DNI prior upcoming outpatient appointments as scheduled primary care doctor 11/03/2019 1:20 PM Provider Raleigh Smith DO Department [facility] oncology/hematology 11/17/2019 10:45 AM Provider Earnest Sanchez MD Department Hematology/Oncology [facility] Admission and Anticipated Discharge Date Admission Date: October 20, 2019 Subjective Patient seen and examined at [facility]. No acute distress at time of exam. She reports abdominal pain felt better with pain medications. She made bowel movement yesterday. no chest pain. no shortness of breath. breathing on room air. no vomiting. no fever Review of Systems Review of Systems: All systems reviewed & are unremarkable except as noted in Subjective Physical Exam Constitutional: cooperative Eyes: PERRL, conjunctivae normal, anicteric sclerae EOM intact bilaterally ENMT: external ear and nose normal, oropharynx normal Neck: normal visual inspection Respiratory: normal respiratory effort Cardiovascular: Rate/Rhythm: regular rate Gastrointestinal (Abdomen): Percussion/Palpation: abdomen soft (has hernia) Musculoskeletal: Head/Neck/Chest: normocephalic and head atraumatic Neurologic: PERRL, EOMI, accommodation nl, no face palsy, no dysarthria moves all extremities Psychiatric: Orientation: alert and oriented x 3 Results & Data Results & Data ([facility]) Vital Signs (Past 12 Hours) Vital Signs Temp Pulse Pulse Resp BP BP Pulse Ox 10/21/19 07:11 37.0 C 90 20 139/74 93 10/21/19 03:26 36.9 C 80 19 155/74 H 94 10/20/19 23:52 37.2 C 89 18 156/75 H 93
--- NOTE | 2019-10-21 11:16 | Palliative Care Progress Note ---
Date of Service October 21, 2019 Assessment & Plan (1) Goals of care, counseling/discussion: -Chart reviewed. Patient to be seen by palliative MD this afternoon. -Patient has used four doses of Dilaudid 0.5mg IV in last 24 hours, last dose was around 1am. Would discontinue this today. -Fentanyl patch was increased to 50mcg/hr yesterday. -Continue to encourage use of Oxycodone 5mg PRN breakthrough pain. -After discussion with patient and her son/Mikhail POWELL, yesterday-- plan/goal is for home with hospice. Patient lives alone in apartment, but patient's daughter might be able to come stay with patient if needed. Family will accommodate patient's needs per the son. -We will continue to follow as needed. (2) Intractable abdominal pain: (3) Pancreatic cancer metastasized to liver: Subjective Chart reviewed. Patient has used only 4 doses of 0.5mg IV Dilaudid in last 24 hours, last dose being around 1am. Has used two doses of oxycodone 5mg. Results & Data Vital Signs (Past 12 Hours) Vital Signs Temp Pulse Pulse Resp BP BP Pulse Ox 10/21/19 11:10 37.4 C 86 18 130/73 91 10/21/19 07:11 37.0 C 90 20 139/74 93 10/21/19 03:26 36.9 C 80 19 155/74 H 94 10/20/19 23:52 37.2 C 89 18 156/75 H 93 Supervising Physician Co-Signing Physician Notes Chart reviewed, patient seen and examined. Collaborated with JOSE MARTIN Reagan as well as attending physician Dr. Jalloh. Patient awake, alert and oriented x4. Patient reports her pain control has improved with increased fentanyl patch. Patient still requiring PRN medication. Patient reports she was taking 2 tablets of oxycodone at 5 mg for breakthrough pain-we will increase her breakthrough oxycodone to 10. Also discussed with the patient to request her PRN pain medication before her pain gets too severe. Patient reports she waits till her pain is a 7 out of 10-think she may be leading to long, encourage patient to ask for pain medicine when her pain is a 6 out of 10. We will plan to monitor PRN use-patient will likely need another increase in her fentanyl patch. - Patient also reiterated that she did not want to pursue aggressive treatment and was amenable to returning home with hospice care. PE: Alert and oriented, mild distress due to left sided abdominal pain. HEENT: EOMI, hearing within normal limits Respirations: Unlabored, clear breath sounds CV: Slightly tachycardic on exam, no edema Abdomen: Ventral hernia-nontender, easily reduced. Left-sided abdominal pain with palpation Extremities: Full range of motion Neuro: Alert and oriented x4 Agree with above note, assessment and plan as per JOSE MARTIN Reagan. Will continue to follow and assist with pain management as well as goals of care. Coding Level of Care Code 76095 Subseq Hosp Care Lvl 3 Diagnoses Goals of care, counseling/discussion Z71.89 Intractable abdominal pain R10.9 Pancreatic cancer metastasized to liver C25.9; C78.7 Time Spent (min) 35 Time Spent Midlevel A total of 35 minutes spent by this [employer] OPERATOR in reviewing chart and collaborating with MDs and IDT to discuss plan of care.
[2019-10-21] MEDS: ACETAMINOPHEN 325 MG TAB PO PRN (16:13)
[2019-10-21] MEDS: nitrofurantoin macrocrystaL 50 MG CAP PO SCH (20:46)
[2019-10-21] MEDS: CEROVITE ADV FORMULA TAB PO SCH (20:46)
[2019-10-22] MEDS: ACETAMINOPHEN 325 MG TAB PO PRN ×2 (00:23→19:23)
[2019-10-22] MEDS: OXYCODONE HCL IR 5 MG TAB (IMMEDIATE RELEASE) PO PRN ×5 (04:48→20:40)
[2019-10-22 06:31] LABS: Basophils # (auto) 0.02 K/uL (0-0.2); Basophils % (auto) 0.2 %; Hematocrit (blood only) 33.8 % (37-47); Hemoglobin 10.6 g/dL (12.0-16.0); Immature Granulocytes # (auto) 0.02 K/uL (0.00-0.02); Immature Granulocytes % (auto) 0.2 %; Lymphocytes # (auto) 1.48 K/uL (1.2-3.4); Lymphocytes % (auto) 11.8 %; Mean Corpuscular Hemoglobin 26.8 pg (25-34); Mean Corpuscular Hgb Conc 31.4 g/dL (32-36); Mean Corpuscular Volume 85.4 fL (80-100); Mean Platelet Volume 12.1 fL (7.4-10.4); Monocytes # (auto) 1.55 K/uL (0.11-0.59); Monocytes % (auto) 12.4 %; Neutrophils # (auto) 9.45 K/uL (1.4-6.5); Neutrophils % (auto) 75.4 %; Platelet Count 319 K/uL (130-400); RDW Coefficient of Variation 16.1 % (11.5-14.5); RDW Standard Deviation 51.3 fL (36.4-46.3); Red Blood Count 3.96 M/uL (4.2-5.4); White Blood Count 12.52 K/uL (4.8-10.8)
[2019-10-22 06:39] LABS: INR 2.4 (0.9-1.1); Prothrombin Time 24.6 Seconds (9.0-12.0)
[2019-10-22 06:51] LABS: BUN Creatinine Ratio 12.6 (10-20); Calcium 8.9 mg/dl (8.5-10.1); Creatinine Clr Calc Pharmacy 49.7 ml/min; Est GFR (African American) 94.3; Est GFR (Non-African American) 81.4; Potassium 3.9 mmol/L (3.5-5.1)
[2019-10-22 07:09] LABS: Estimated Average Glucose 163 mg/dl; Hemoglobin A1C 7.3 % (4.5-5.6)
[2019-10-22] MEDS: INSULIN ASPART 100 UNITS/ML 3 ML PEN SC SCH ×4 (08:30→20:43)
[2019-10-22] MEDS: SENNA 8.6 MG TAB PO SCH (08:53)
[2019-10-22] MEDS: DOCUSATE SODIUM 100 MG CAP PO SCH (08:53)
[2019-10-22] MEDS: CHECK FENTANYL PATCH PLACEMENT SCH ×3 (08:54→23:57)
--- NOTE | 2019-10-22 19:36 | Hospitalist Progress Note ---
Date of Service October 22, 2019 Assessment & Plan (1) Intractable abdominal pain: Pancreatic cancer metastasized to liver: Abdominal pain secondary to metastatic neuroendocrine pancreatic tumor Present on admission with abdominal pain CT abd/pelvis showed Large necrotic mass within the left upper quadrant has described above. Multiple soft tissue nodules in the left side of the abdomen and right perirectal location. Previous hospitalist team discussed finding with oncology Dr. Sanchez Patient (as well as family) would like to transition to hospice on discharge ( Oncology was made awared) Palliative care on board for goals of care Pain has been controlled with fentanyl 50mcg and oxycodone for breakthrough pain Case management placed referral for home hospice on discharge Since her pain is controlled and pt looks comfortable, will discharge today Constipation Continue a bowel regimen Diabetes Mellitus Type 2 without correction current use of insulin on sliding scale insulin while inpatient Hyperlipidemia On statin. History of atrial fibrillation History of Deep Vein Thrombosis and history Pulmonary Embolism On coumadin with supratherapeutic INR present on admission Rate controlled Pt would like to continue her coumadin for now to prevent any clot Continue to monitor her coumadin for now until Deep venous thrombosis prophylaxis (Coumadin was on hold since INR was therapeutic ) Code Status as DNR/DNI Disposition Discharge home with hospice Primary care doctor 11/03/2019 1:20 PM Provider Raleigh Smith DO Department [facility] Oncology/hematology 11/17/2019 10:45 AM Provider Earnest Sanchez MD Department Hematology/Oncology [facility] Admission and Anticipated Discharge Date Admission Date: October 20, 2019 Subjective Pt was seen and examined Sitting in bed with no distress eating lunch Pt said that her pain is controlled with the pain medication Denies any chest pain, palpitation, dizziness and SOB Physical Exam Physical Exam: General- No acute distress Head- atraumatic Eyes- PERRL, EOMI, ENT- oropharynx clear Neck- supple, no JVD Lungs- clear to auscultation Heart- regular rhythm; no murmur Abdomen- normal bowel sounds, soft, nontender Extremities- no calf tenderness Neuro- alert, oriented x 3; PERRL, EOMI; no facial palsy; no dysarthria Skin- warm & dry Results & Data Results & Data ([facility]) Vital Signs (Past 12 Hours) Vital Signs Temp Pulse Pulse Resp BP BP Pulse Ox 10/22/19 19:21 37.7 C H 114 H 20 112/75 94 10/22/19 16:06 37.6 C H 113 H 18 107/63 94 10/22/19 11:28 36.8 C 108 H 20 120/75 94
[2019-10-22] MEDS ORDERED: WARFARIN SOD 5 MG TAB PO ONE (19:47)
[2019-10-22] MEDS: nitrofurantoin macrocrystaL 50 MG CAP PO SCH (20:43)
[2019-10-22] MEDS: CEROVITE ADV FORMULA TAB PO SCH (20:43)
[2019-10-23 06:18] LABS: INR 1.6 (0.9-1.1); Prothrombin Time 16.7 Seconds (9.0-12.0)
[2019-10-23] MEDS: CHECK FENTANYL PATCH PLACEMENT SCH (07:40)
[2019-10-23] MEDS: DOCUSATE SODIUM 100 MG CAP PO SCH (07:40)
[2019-10-23] MEDS: SENNA 8.6 MG TAB PO SCH (07:40)
[2019-10-23] MEDS: INSULIN ASPART 100 UNITS/ML 3 ML PEN SC SCH ×2 (08:28→12:28)
[2019-10-23] MEDS: OXYCODONE HCL IR 5 MG TAB (IMMEDIATE RELEASE) PO PRN (10:15)
--- NOTE | 2019-10-23 15:03 | Palliative Care Progress Note ---
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 Patient follows with Raysa blair/onc-- is currently on Sandostatin for the pancreatic cancer. CT abd/pelvis shows large necrotic mass within the left upper quadrant, multiple soft tissue nodules in the left side of abdomen and right perirectal location, liver mets, multiple ventral hernias. There is no comparison study in [facility]'s system, but per hospitalist documentation, there is progression of patient's metastatic disease. Admitting physician notes that patient has declined chemotherapy in the past and maintains at this time that she just wants to be comfortable. She lives alone in a senior apartment. Palliative care is consulted to discuss goals of care. -Patient seen and examined, pain markedly improved with increase fentanyl patch to 50 mcg. Patient still required 40 mg of PRN oxycodone in the past 24 hours for pain control. Will increase her patch by 25 mcg for a total of 75 mcg. -Plan is for discharge home with patient's daughter to help manage medications, hospice referral made to [facility]. (2) Intractable abdominal pain: Improved pain control (3) Pancreatic cancer metastasized to liver: Transitioning to comfort care- hospice referral made. (2) Intractable abdominal pain: (3) Pancreatic cancer metastasized to liver: Subjective Patient seen and examined, no acute distress. Patient reports pain is well controlled-patient did require 4 as needed doses of oxycodone at 10 mg in the past 24 hours for comfort. Would suggest increasing her fentanyl patch to 75 mcg from 50 mcg to cover her as needed use. Patient is eager to return home, plan is to return home with her daughter under hospice care. Review of Systems Review of Systems: Patient denied pain, fever, chills, chest pain, shortness of breath Physical Exam Physical Exam: PE: Patient awake and alert, not confused or drowsy HEENT: EOMI, hearing within normal limits Respirations: Unlabored CV: Regular rate Abdomen: Nontender to moderate palpation Extremities: Full range of motion Neuro: Alert and oriented Results & Data Vital Signs (Past 12 Hours) Vital Signs Temp Pulse Pulse Pulse Resp BP BP 10/23/19 13:14 98.8 F 83 95 H 108 H 18 112/75 146/82 H 10/23/19 07:23 98.8 F 83 18 146/82 H Pulse Ox 10/23/19 13:14 96 10/23/19 07:23 96 PG Care Time/CCT Total # of Minutes Spent Total Time Spent with Patient: Total time spent 25 minutes with greater than 50% of the time spent at bedside assessing patient's pain control and discussing goals of care and discharge plan Coding Level of Care Code 00118 Subseq Hosp Care Lvl 2 Diagnoses Goals of care, counseling/discussion Z71.89 Intractable abdominal pain R10.9 Pancreatic cancer metastasized to liver C25.9; C78.7 Time Spent (min) 25
--- NOTE | 2019-10-23 16:01 | Discharge Summary ---
Date of Service October 23, 2019 Admission HPI Per Admitting Provider CHIEF COMPLAINT: Severe abdominal pain. 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 She currently comes with severe abdominal pain. The patient follows with hematology/oncology for neuroendocrine pancreatic tumor which is metastatic. Currently, she is only on Sandostatin LAR every 4 weekly.Since last 2 days, she has severe abdominal pain, is not getting better, mostly in the left lower abdominal pain associated with nausea, so that is why she came to the ER and CAT scan showing large necrotic mass in the left upper quadrant. The patient is DNR/DNI. She says she has constipation, uses stool softener. Denies blood in the stool or black stools, normal bladder movements. No fever, no chills, no chest pain, no shortness of breath, no cough, no difficulty swallowing. Appetite is not that great. No blurred vision. No headaches. Hard of hearing. No earache, no sore throat, no fever, no chills. Ambulates okay at home. When she goes outside, she ambulates with a walker.Hemodynamically stable. Admission Exam Per Admitting Provider GENERAL: The patient is old and frail, not in acute distress. VITAL SIGNS: Temperature 37.1, pulse 82, respiratory rate 16, blood pressure 182/91, oxygen 98% on room air. HEENT: Pupils equal, round, reactive to light. NECK: Supple. CARDIOVASCULAR: S1, S2 heard, regular rate and rhythm, no murmur, no gallop. RESPIRATORY SYSTEM: Normal AP diameter. No accessory muscle use. No wheezing, no crackles. ABDOMEN: Soft, bowel sounds somewhat sluggish, diffuse abdominal tenderness, more in the left lower quadrant, mild guarding.Ventral hernia seen, No rigidity. No distension. CENTRAL NERVOUS SYSTEM: Cranial nerves II-XII are grossly intact. Nonfocal. EXTREMITIES: No edema, no erythema. Principal Diagnosis Intractable abdominal pain Metastatic neuroendocrine pancreatic tumor Constipation Diabetes Mellitus Type 2 Hyperlipidemia History of atrial fibrillation History of Deep Vein Thrombosis and history Pulmonary Embolism Discharge Exam General- No acute distress Head- atraumatic Eyes- PERRL, EOMI, ENT- oropharynx clear Neck- supple, no JVD Lungs- clear to auscultation Heart- regular rhythm; no murmur Abdomen- normal bowel sounds, soft, nontender Extremities- no calf tenderness Neuro- alert, oriented x 3; PERRL, EOMI; no facial palsy; no dysarthria Skin- warm & dry Discharge Data Allergies Allergy/AdvReac Type Severity Reaction Status Date / Time Sulfa (Sulfonamide Allergy Unknown hands swell Verified 10/19/19 22:14 Antibiotics) meperidine AdvReac Severe blood Verified 10/19/19 22:14 pressure drops significantly Consultations 10/19/19 23:12 ED Decision to Admit Stat 10/20/19 01:25 Consult Case Management - Discharge Planning Routine 10/20/19 08:00 Consult Palliative Care Routine Ordered Studies 10/19/19 21:33 CT abd pelvis IV con only Stat ABDOMEN AND PELVIS CT WITH IV CONTRAST CT DOSE: 261.25 mGy.cm HISTORY: Generalized abdominal pain. Pancreatic cancer. TECHNIQUE: Multiaxial CT images of the abdomen and pelvis were performed following the use of intravenous contrast. A dose lowering technique was utilized adhering to the principles of ALARA. COMPARISON STUDY: None. FINDINGS: Left basilar linear densities consistent with subsegmental atelectasis or scarring. No pneumoperitoneum. No pneumatosis. No suspicious lytic or blastic osseous lesions. The gallbladder, right adrenal gland, and right kidney are unremarkable. The spleen is not identified and likely surgically absent. There are few irregular hypodense lesions within the liver with the 3 largest measuring 3.4 cm within the right hepatic lobe, 2.4 cm within the left hepatic lobe, and also 2.2 cm within the left hepatic lobe. These are suspicious for metastatic disease. Additional subcentimeter hypodense lesions within the liver are too small to characterize. Partially necrotic large left upper quadrant mass with a few adjacent satellite nodules. This measures approximately 10 x 6 cm. This abuts and likely invades along the undersurface of the proximal stomach. This appears to invade into the left adrenal gland and partially encases the celiac artery. There is a patent stent within the celiac artery. This mass also results in mild mass effect along the left kidney. No hydronephrosis. Multiple p artially necrotic nodules seen within the left upper quadrant laterally at the splenic resection site and along the left paracolic gutter abutting the ascending colon. Some of these could represent areas of splenosis. However, the necrotic nodules remain suspicious for metastatic disease. The uterus is surgically absent. No bladder wall thickening. Small midline ventral hernia within the lower pelvis which contains a small segment of the anterior bladder. Multiple small soft tissue nodules along the right perirectal location with the largest measuring 1 cm. No evidence for bowel obstruction. Colonic diverticulosis. No evidence for diverticulitis. Moderate to large amount of stool within the proximal colon. Soft tissue densities within the subcutaneous fat of the left gluteal region are nonspecific but may represent sites of prior medication injection. Multiple small fat-containing midline ventral hernias. There is also a moderate size umbilical hernia containing a short segment of small bowel. IMPRESSION: 1. Large necrotic mass within the left upper quadrant has described above. 2. Multiple soft tissue nodules in the left side of the abdomen and right perirectal location. This may represent a combination of splenosis and metastatic disease. 3. No bowel wall thickening or obstruction. 4. Hypodense lesions within the liver concerning for metastatic disease. 5. Multiple ventral hernias some of which contain small bowel and a short segment of the anterior bladder. 6. Additional findings as described above. ACT 112: Negative or not required by law. Electronically signed by: Zafar Campbell M.D. 10/19/2019 11:09 PM Dictated: 10/19/192248 Transcribed: 10/19/192248 Hospital Course (1) Intractable abdominal pain: Pancreatic cancer metastasized to liver: Abdominal pain secondary to metastatic neuroendocrine pancreatic tumor Present on admission with abdominal pain CT abd/pelvis showed Large necrotic mass within the left upper quadrant has described above. Multiple soft tissue nodules in the left side of the abdomen and right perirectal location. Previous hospitalist team discussed finding with oncology Dr. Sanchez Patient (as well as family) would like to transition to hospice on discharge ( Oncology was made awared) Palliative care on board for goals of care Pain has been controlled with fentanyl 50mcg and oxycodone for breakthrough pain Case management placed referral for home hospice on discharge Since her pain is controlled and pt looks comfortable, will discharge today Constipation Continue a bowel regimen Diabetes Mellitus Type 2 without intermediate current use of insulin on sliding scale insulin while inpatient Hyperlipidemia On statin. History of atrial fibrillation History of Deep Vein Thrombosis and history Pulmonary Embolism On coumadin with supratherapeutic INR present on admission Rate controlled Pt would like to continue her coumadin for now to prevent any clot Continue to monitor her coumadin for now until Deep venous thrombosis prophylaxis (Coumadin was on hold since INR was therapeutic ) Code Status as DNR/DNI Disposition Discharge home with hospice Primary care doctor 11/03/2019 1:20 PM Provider Raleigh Smith DO Department [facility] [place][Note 2] Oncology/hematology 11/17/2019 10:45 AM Provider Earnest Sanchez MD Department Hematology/Oncology [facility] Total Time Total Time Spent Total Time Spent (In Minutes): 35 minutes Total Time Includes: Examination of the Patient, Discharge Planning, Medication Reconciliation, Communication With Other Providers and Other Discharge Plan Discharge Items Patient Disposition: Hospice - Home Reason For Visit: ABDOMINAL PAIN Discharge Diagnosis: Intractable abdominal pain Metastatic neuroendocrine pancreatic tumor Constipation Diabetes Mellitus Type 2 Hyperlipidemia History of atrial fibrillation History of Deep Vein Thrombosis and history Pulmonary Embolism Activity: Resume your previous activity Non-emergency contact: Primary Care Provider and Oncologist Call non-emergency contact if: you have any medication questions, your pain is not controlled and your pain is worsening Follow-up/Referrals: Raleigh Pérez DO [Primary Care Provider] - 10/29/19 9:20 am Diet: Carb Consistent or DM2 Addtl Attending Provider Instructions: Follow up with your primary care provider Dr. Pérez on 10/28 @ 9:30 AM Follow up with your oncology Dr. Sanchez Since you want to continue the coumadin to prevent stroke and blood clot, your INR will continue monitor by the coumadin clinic until you no longer want to continue the coumadin Continue pain control for comfort measure Hold narcotic if you become drowsy and lethargy Fall precaution Pending Studies at Discharge: No Stand-Alone Forms: [facility] [employer] [facility] Medications and DC Order Prescriptions: New sennosides [Senokot] 8.6 mg Tablet 8.6 mg PO QAM Qty: 30 RF: 0 oxycodone 5 mg Tablet 10 mg PO Q4H PRN (Reason: breakthrough pain) Qty: 10 RF: 0 fentanyl 75 mcg/hr patch 72 hour 1 patch TD Q72H Qty: 2 RF: 0 Continued Ocuvite Preservision 1 TAB tablet 1 tab PO QPM Qty: 0 RF: 0 nitrofurantoin macrocrystal 50 mg capsule 100 mg PO QPM RF: 0 simvastatin 20 mg tablet 20 mg PO QPM RF: 0 docusate sodium [Stool Softener] 100 mg Capsule 100 mg PO QAM RF: 0 polyethylene glycol 3350 [Miralax] 17 gram/dose Powder 17 g PO DAILY PRN (Reason: Constipation) RF: 0 Changed warfarin 5 mg tablet 5 mg PO DAILY Qty: 0 RF: 0 Discontinued warfarin 5 mg tablet 7.5 mg PO WK RF: 0 fentanyl 25 mcg/hr patch 72 hour 25 mcg topical [id number] RF: 0 oxycodone 5 mg tablet 5 - 10 mg PO Q4H PRN (Reason: Pain) RF: 0 Discharge Orders: Discharge Order (Routine); Ordered 10/23/19 Ordered By: Lima Ireland Admission Data Admit Date/Time: 10/20/19 00:03 Attending Provider: Lima Ireland Admit Provider: Trent Cruz Primary Care Provider: Raleigh Pérez V. Other Providers: Trent Cruz ; Tanika Delaney ; Mike Rubio Other Interventions: Discharge Summary Assessment (RN) Last Done: 10/23/19 13:14 DC Date/Time DO NOT enter until pt leaves facility: 10/23/19 13:55
== END 2019-10-23 13:55 | disposition hospice, home (50) | DRG 844 ==
LOC: ED 21:21 → 2N 10-20 00:03 → SUATTDRO 10-20 00:03 → 2N 10-20 01:03